=== PATIENT | female | born 1975 | race Caucasian/White ===

== ENCOUNTER → 2021-11-13 11:46 | Outpatient (BNVA) | payer OTHER, SELFPAY | PROVIDERS: Family Provider Nurse Practitioner Family; Visit Provider Orthopaedic Surgery | DX: Z20.822 Contact with and (suspected) exposure to COVID-19 (principal) | CPT/HCPCS: 87635 ==

== ENCOUNTER 2021-11-16 09:43 | Day surgery (SDC) | payer OTHER, SELFPAY ==
[2021-11-15 14:13] VITALS: BMI 31.3
[2021-11-16] VITALS (8 sets, daily range): BP systolic 148–184; BP diastolic 94–112; PULSE 69–86; RESP 18; TEMP 36.8–36.9; O2SAT 95–99
[2021-11-16] MEDS: sodium chloride 0.9% 1,000 ML 30 ML IV (10:09)
--- NOTE | 2021-11-16 10:20 | ANES.PREANE2 ---
Pre-Anesthetic Assessment Height/Weight: Height 1.73 m Weight 93.44 kg Temp Pulse Resp BP Pulse Ox 98.2 F 82 18 168/104 95 11/16/21 10:02 11/16/21 10:02 11/16/21 10:02 11/16/21 10:02 11/16/21 10:02 Preop Diagnosis: Ganglion left wrist Operation Date: 11/16/21 11:00 Proposed Procedures p Excision Of Ganglion Cyst 15798/m67.439(Left) - Tulio Goldman MD Familial anesthetic complications: None Was Beta Tonia taken within 24 hours: N/A Was Clonidine taken within 24 hours: N/A Last intake: Intake Last Liquid Date 11/15/21 Last Liquid Time 23:30 Last Solid Date 11/15/21 Last Solid Time 23:30 Social Tobacco (vapes) and No alcohol Exam alert, oriented x 3, clear to auscultation bilaterally and regular rate & rhythm Airway Mallampati: Class III Dentition: other (crown that is missing) CV/HEM Hypertension Neuropsych Headache Anesthetic Plan ASA status: 2 Anesthesia: MAC Medications/Allergies Home Medications Medication Instructions Recorded Confirmed Last Taken Type atorvastatin 80 mg tablet 80 mg PO DAILY 06/08/20 11/16/21 11/15/21 History azelastine 137 mcg (0.1 %) nasal 1 spray INTRANASAL BID 06/08/20 11/15/21 Unknown History spray aerosol duloxetine 60 mg capsule,delayed 60 mg PO DAILY 06/08/20 11/16/21 11/15/21 History release (Cymbalta) estradiol 1 mg tablet (Estrace) 1 mg PO DAILY 06/08/20 11/16/21 11/15/21 History fexofenadine 180 mg tablet 180 mg PO DAILY 06/08/20 11/16/21 11/15/21 History (Mera Allergy) fremanezumab-vfrm 225 mg/1.5 mL 225 mg SUBCUT Q30D 06/08/20 11/16/21 11/07/21 History subcutaneous auto-injector (Ajovy) mometasone 50 mcg/actuation nasal 2 spray INTRANASAL DAILY 06/08/20 11/15/21 Unknown History spray (Nasonex) sumatriptan 20 mg/actuation nasal 20 mg INTRANASAL Q2H PRN 06/08/20 11/15/21 Unknown History spray (Imitrex) Allergies Allergy/AdvReac Type Severity Reaction Status Date / Time No Known Allergies Allergy Verified 11/15/21 14:07 Current Medications Generic Name Dose Route Start Last Admin Trade Name Freq PRN Reason Stop Dose Admin Sodium Chloride 1,000 mls @ 30 mls/hr 11/16/21 10:00 11/16/21 10:09 Sodium Chloride 0.9% IV 11/17/21 09:59 30 mls/hr .Q24H JENNIFER Administration PFSH Anesthesia Social History Smoking and tobacco status: never smoked Data Anesthesia Cardiac Studies: No Data to Display
--- NOTE | 2021-11-16 11:31 | W.PM.OPSUD ---
Surgery/Procedure H&P Update DATE OF PROCEDURE: November 16, 2021 DATE H&P PERFORMED: 10/31/21 H&P UPDATE INFORMATION: I have reviewed H&P completed within last 30 days PREOP DIAGNOSIS: Ganglion left wrist PLANNED PROCEDURE: Operation Date: 11/16/21 11:00 Proposed Procedures p Excision Of Ganglion Cyst 20979/m67.439(Left) - Tulio Goldman MD
[2021-11-16] MEDS: HYDROcodone-acetaminophen 5-325 mg Tablet 1 TAB PO (13:29)
--- NOTE | 2021-11-16 14:18 | ANE.PACU2 ---
Inpatient post-anesthesia follow up: Airway intact: Yes Vital signs: Temperature 98.4 F Pulse Rate 69 Respiratory Rate 18 Blood Pressure 184/99 Pulse Oximetry 97 Oxygen Delivery Me thod Room Air Oxygen Flow Rate 5 Fraction of Inspir ed Oxygen Hydration adequate: Yes Nausea and vomiting: Yes Pain level: 2 Mental status: Baseline
--- NOTE | 2021-11-18 13:14 | PM.OP ---
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 The cycst recurred after aspiration. Surgical excision was chosen to remove the painful cyst. Procedure: Ms. Clark was taken to the operating room and a Shanika block was provided by the anesthesia service. The left arm was prepped and drapped in the usual fashion. A timeout was performed. A transverse incision 2 cm in length was made over the ganglion transversely on the dorsum of the wrist. Disecton was carried down with blunt mosquito revealing the ganlion adherent to the dorsal joint capsule between the common extensor tendons. Using tenotomy scissors the ganglion was disectect free cirmcumfirentially and disected off the adherent capsule. The capsular origin was coagulated with bipolar cautery. The tournequette was deflated. A Skin edges were closed with 3-0 prolene. Xeroflo gauze, sterile 4x4's, cast padding and a compressive DANIE wrap were applied. The patient was takne to recover in stable condition.
== END 2021-11-16 14:00 | disposition home or self-care (01) ==
PROVIDERS: Visit Provider Orthopaedic Surgery
PROC: (CPT 25111; principal; 2021-11-16 10:50)
DX: M67.432 Ganglion, left wrist (principal); F17.290 Nicotine dependence, other tobacco product, uncomplicated; I10 Essential (primary) hypertension
CPT/HCPCS: 25111; J0690; J1100; J2250; J2405; J2704; J3010; J3490; J7030

== ENCOUNTER → 2022-04-18 14:01 | Outpatient (BNVA) | payer OTHER, SELFPAY | PROVIDERS: Visit Provider Orthopaedic Surgery | DX: M25.572 Pain in left ankle and joints of left foot (principal) | CPT/HCPCS: 73610 ==